=== PATIENT | male | born 1995 | race African-American/Black ===

== ENCOUNTER 2020-05-02 17:44 | Emergency (ER) | payer BC ==
[2020-05-02 17:53] VITALS: BP 115/63
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
== END 2020-05-02 18:09 | disposition home or self-care (01) ==
LOC: ER 17:44
DX: S01.312A Laceration without foreign body of left ear, initial encounter (principal); X58.XXXA Exposure to other specified factors, initial encounter; Z87.891 Personal history of nicotine dependence
CPT/HCPCS: 99282